=== PATIENT | female | born 1955 | race Caucasian/White ===

== ENCOUNTER → 2018-10-19 | Day surgery (SDC) | payer BC ==
[~2018-10-19] MED LIST: Lidocaine 1% 20 ML MDV ONE
== END ==
LOC: CC.SDS 10:01
PROVIDERS: ATTEND Family Medicine
DX: I87.2 Venous insufficiency (chronic) (peripheral) (principal)

== ENCOUNTER → 2018-10-26 | Day surgery (SDC) | payer BC | LOC: CC.SDS 10:28 | PROVIDERS: ATTEND Family Medicine | DX: I87.2 Venous insufficiency (chronic) (peripheral) (principal) ==

== ENCOUNTER 2023-12-31 05:37 | Day surgery (SDC) | payer MEDICARE ==
[2023-12-31] MEDS: Lactated Ringers 1,000 ML IV SCH (06:03)
[2023-12-31] MEDS: Cyclopentolat/Tropic/Phenyleph 1 ML Ophth Drop SDV EYELF SCH (06:08)
[2023-12-31] MEDS ORDERED: Midazolam 1 MG/ML 2 ML SDV ONE (06:53)
[2023-12-31] MEDS: Phenyleprhine/Ketorolac 4 ML Vial IR ONE (07:07)
[2023-12-31] MEDS: Povidone-Iodine 5% Sterile Ophth Soln 30 ML Bottle EYELF ONE (07:07)
[2023-12-31] MEDS: Lidocaine 1% PF 2 ML SDV INJECT ONE (07:07)
[2023-12-31] MEDS: Brimonidine 0.2% Ophth Soln 5 ML Bottle EYELF ONE (07:07)
[2023-12-31] MEDS: Tetracaine HCl/PF 0.5% 4 ML Bottle EYELF ONE (07:07)
[2023-12-31] MEDS: MOXIFLOXACIN PF in BSS 1 MG/ML VIAL IO ONE (07:07)
[2023-12-31] MEDS: acetaZOLAMIDE 500 MG Cap.ER PO ONE (07:34)
== END 2023-12-31 08:15 | disposition home or self-care (01) ==
LOC: CC.SDS 05:37
PROVIDERS: ATTEND Ophthalmology
DX: H25.812 Combined forms of age-related cataract, left eye (principal); E78.5 Hyperlipidemia, unspecified; E66.9 Obesity, unspecified; Z79.82 Long term (current) use of aspirin; Z68.30 Body mass index [BMI] 30.0-30.9, adult
CPT/HCPCS: A9270-GY; J1097; J2250; J3490; J7120

== ENCOUNTER 2024-02-08 06:26 | Day surgery (SDC) | payer MEDICARE ==
[2024-02-08] MEDS: Lactated Ringers 1,000 ML IV SCH (06:56)
[2024-02-08] MEDS: Tropicamide 1% Ophth Soln 3 ML Bottle EYERT SCH (06:59)
[2024-02-08] MEDS: Cyclopentolate 1% Opth Soln 2 ML Bottle EYERT SCH (07:01)
[2024-02-08] MEDS: Phenylephrine 2.5% Ophth Soln 2 ML Bot EYERT SCH (07:02)
[2024-02-08] MEDS ORDERED: Midazolam 1 MG/ML 2 ML SDV ONE (07:48)
[2024-02-08] MEDS: Povidone-Iodine 5% Sterile Ophth Soln 30 ML Bottle EYERT SCH (07:56)
[2024-02-08] MEDS: Tetracaine HCl/PF 0.5% 4 ML Bottle EYERT SCH (07:58)
[2024-02-08] MEDS: Phenyleprhine/Ketorolac 4 ML Vial OP SCH (07:58)
[2024-02-08] MEDS: MOXIFLOXACIN PF in BSS 1 MG/ML VIAL IO SCH (07:58)
[2024-02-08] MEDS: Lidocaine 1% PF 2 ML SDV INJECT SCH (07:58)
[2024-02-08] MEDS: Brimonidine 0.2% Ophth Soln 5 ML Bottle EYERT SCH (08:12)
[2024-02-08] MEDS: acetaZOLAMIDE 500 MG Cap.ER PO SCH (08:23)
== END 2024-02-08 09:05 | disposition home or self-care (01) ==
LOC: CC.SDS 06:26
PROVIDERS: ATTEND Ophthalmology
DX: H26.8 Other specified cataract (principal); I10 Essential (primary) hypertension; E78.5 Hyperlipidemia, unspecified; F41.9 Anxiety disorder, unspecified; F32.A Depression, unspecified; M81.0 Age-related osteoporosis without current pathological fracture; Z87.891 Personal history of nicotine dependence; Z79.82 Long term (current) use of aspirin; Z79.899 Other long term (current) drug therapy
CPT/HCPCS: A9270-GY; J1097; J2250; J3490; J7120; V2632